=== PATIENT | male | born 1960 | race Caucasian/White ===

== ENCOUNTER 2018-02-24 10:34 | Emergency (ER) | payer OTHER ==
[~2018-02-24] VITALS: Ht 188 cm; Wt 98.9 kg
[2018-02-24 11:14] LABS: HEMATOCRIT 45.3 % (42.0-52.0); HEMOGLOBIN 15.7 gm/dL (14.0-18.0); MCH 31.8 pg (26.0-34.0); MCHC 34.6 g/dL (28.0-37.0); MCV 92.1 fL (80.0-100.0); PLATELET COUNT 187 thou/uL (150-400); RBC 4.92 mil/uL (4.50-6.00); WBC 2.8 thou/uL (4.0-11.0)
[2018-02-24 11:18] LABS: URINE BILIRUBIN NEGATIVE (Negative); URINE BLOOD NEGATIVE (Negative); URINE CLARITY CLEAR; URINE COLOR YELLOW; URINE GLUCOSE-RANDOM* NEGATIVE (Negative); URINE KETONES NEGATIVE (Negative); URINE LEUKOCYTES NEGATIVE (Negative); URINE NITRITE NEGATIVE (Negative); URINE PROTEIN (DIPSTICK) TRACE (Negative); URINE UROBILINOGEN 0.2 E.U./dl (0.2-1.0)
[2018-02-24] MEDS ORDERED: VENTOLIN HFA 1818 GM INH (11:20)
[2018-02-24 11:25] LABS: CALCIUM 9.1 mg/dL (8.5-10.1); CREATININE 0.9 mg/dL (0.7-1.3); POTASSIUM 3.6 mmol/L (3.5-5.1)
[2018-02-24 11:29] LABS: ALBUMIN 4.2 g/dL (3.4-5.0); TOTAL BILIRUBIN 0.5 mg/dL (<0.1-1.0)
[2018-02-24 11:50] LABS: PLATELET ESTIMATE NORMAL
[2018-02-24] MEDS ORDERED: ZOFRAN ODT4 MG PO (15:06)
[2018-02-24] MEDS ORDERED: BENTYL 20 MG TA20 M1 PO (15:06)
[2018-02-24 15:24] VITALS: BP 135/79
== END 2018-02-24 15:24 | disposition home or self-care (01) ==
LOC: ER 10:34
PROVIDERS: Emergency Medicine
DX: K52.9 Noninfective gastroenteritis and colitis, unspecified (principal); J45.909 Unspecified asthma, uncomplicated; Z88.5 Allergy status to narcotic agent